=== PATIENT | female | born 1995 | race Caucasian/White ===

== ENCOUNTER 2019-01-31 01:59 | Emergency (ER) | payer SELFPAY ==
[~2019-01-31] VITALS: Ht 162.6 cm; Wt 86.2 kg
[2019-01-31 02:00] VITALS: BP 140/80
--- NOTE | 2019-01-31 02:00 | NUR ---
TO BED # 03 AMBULATORY
--- NOTE | 2019-01-31 02:15 | NUR ---
23 YO F BIB SELF AND FAMILY PRESENTS TO ED C/O FEVER SINCE YESTERDAY ACCOMPANIED BY PINEDA, BODY ACHES X 1 DAY. PT IS FEBRILE AT THIS TIME: 100.8 PMH-- DENIES
[2019-01-31] MEDS ORDERED: KETOROLAC 60 MG/2 ML VIAL IM ONE (02:25)
[2019-01-31 03:20] VITALS: BP 140/80
--- NOTE | 2019-01-31 03:20 | NUR ---
Patient discharged with v/s stable. Written and verbal after care instructions given and explained. Patient alert, oriented and verbalized understanding of instructions. Ambulatory with steady gait. All questions addressed prior to discharge. ID band removed. Patient advised to follow up with PMD. Rx of Promethazine and Motrin given. Patient educated on indication of medication including possible reaction and side effects. Opportunity to ask questions provided and answered.
== END 2019-01-31 03:20 | disposition home or self-care (01) ==
LOC: MED 01:59
DX: J06.9 Acute upper respiratory infection, unspecified (principal); M25.50 Pain in unspecified joint
CPT/HCPCS: 71045; 96372; 99283; J1885

== ENCOUNTER 2020-01-06 19:32 | Emergency (ER) | payer SELFPAY ==
[~2020-01-06] VITALS: Ht 162.6 cm; Wt 90.3 kg
[2020-01-06 19:42] VITALS: BP 130/86
[2020-01-06] MEDS ORDERED: traMADol 50 MG TAB PO ONE (20:00)
[2020-01-06] MEDS ORDERED: NACL 0.9% 1,000 ML IV ONE (20:00)
[2020-01-06] MEDS ORDERED: ONDANSETRON 4 MG/2 ML VIAL IVP ONE (20:00)
[2020-01-06] MEDS ORDERED: ACETAMINOPHEN 650 MG/20.3 ML UDC PO ONE (20:00)
[2020-01-06] MEDS ORDERED: ACETAMINOPHEN 325 MG TAB PO ONE ×3 (20:00→20:10)
[2020-01-06] MEDS ORDERED: KETOROLAC 30 MG/ML VIAL IVP ONE (21:20)
[2020-01-06 21:42] VITALS: BP 125/81
== END 2020-01-06 21:35 | disposition home or self-care (01) ==
LOC: MED 19:32
DX: R51 Headache (principal)
CPT/HCPCS: 70450; 81025; 96374; 96375; 99284; J1885; J2405; J7030

== ENCOUNTER 2021-12-21 15:18 | Emergency (ER) | payer MEDICAID ==
[~2021-12-21] VITALS: Ht 162.6 cm; Wt 81.6 kg
[2021-12-21 15:38] VITALS: BP 155/80
--- NOTE | 2021-12-21 15:45 | NUR ---
PT W/C ASSISTED TO BED 5.
[2021-12-21] MEDS ORDERED: DICYCLOMINE HCL LIQUID 20 MG, ALUMINUM HYD/MAG/SIMETHICONE 30 ML, LIDOCAINE VISCOUS 2% ... PO ONE ×3 (16:00)
[2021-12-21] MEDS ORDERED: KETOROLAC 30 MG/ML VIAL IM ONE (16:00)
--- NOTE | 2021-12-21 16:10 | NUR ---
26 Y/O FEMALE C/O ABD PAIN X 1 HOUR AGO. PATIENT STATES "SHE WAS HOLDING IN HER BOWEL MOVEMENT AND FELT LIKE SOMETHING WENT UP IN HER STOMACH AND THEN PAIN STARTED." PAIN IS 6/10 ONLY IN ABDOMEN. PATIENT GAVE LAST MONTH. MEDICAL HISTORY: DENIES NKDA
--- NOTE | 2021-12-21 16:11 | NUR ---
LABS DRAWN HANDED TO CPT. JEAN-CLAUDE
[2021-12-21 16:12] LABS: BASOPHILS % (AUTO) 0.5 % (0.0-2.0); EOSINOPHILS # (AUTO) 0.1 K/uL (0-0.4); EOSINOPHILS % (AUTO) 1.2 % (0.0-4.0); HEMATOCRIT 34.4 % (36-48); HEMOGLOBIN 11.4 g/dL (12.0-16.0); LYMPHOCYTES # (AUTO) 2.8 K/uL (2.5-16.5); LYMPHOCYTES % (AUTO) 31.3 % (20.5-51.1); MEAN CORPUSCULAR HEMOGLOBIN 29 pg (27-31); MEAN CORPUSCULAR HGB CONC 33 g/dL (33-37); MEAN CORPUSCULAR VOLUME 86.1 fL (80-94); MONOCYTES # (AUTO) 0.5 K/uL (0.8-1.0); MONOCYTES % (AUTO) 5.5 % (1.7-9.3); NEUTROPHILS # (AUTO) 5.5 K/uL (1.8-7.7); NEUTROPHILS % (AUTO) 61.5 % (42.2-75.2); PLATELET COUNT (AUTO) 269 K/uL (140-450); RED BLOOD CELL COUNT(AUTO) 3.99 MIL/uL (4.20-5.40); RED CELL DISTRIBUTION WIDTH 13.3 % (11.6-13.7)
--- NOTE | 2021-12-21 16:12 | NUR ---
RADIOLOGY AT BEDSIDE
--- NOTE | 2021-12-21 16:21 | NUR ---
pt to brp w/o asst
[2021-12-21] MEDS ORDERED: ALUMINUM HYD/MAG/SIMETHICONE 30 ML UDC ONE (16:41)
[2021-12-21] MEDS ORDERED: DICYCLOMINE HCL LIQUID 10 MG/5 ML UDC ONE (16:41)
[2021-12-21 16:42] LABS: ALBUMIN 3.7 g/dL (3.4-5.0); ANION GAP 15.4 (8-16); CARBON DIOXIDE 26.1 mmol/L (21-32); CREATININE 0.9 mg/dL (0.6-1.3); POTASSIUM 3.5 mmol/L (3.5-5.1); TOTAL BILIRUBIN 0.3 mg/dL (0.0-1.0)
--- NOTE | 2021-12-21 17:41 | NUR ---
Patient discharged with v/s stable. Written and verbal after care instructions given. Patient alert, oriented and verbalized understanding of instructions. Ambulatory with steady gait. All questions addressed prior to discharge. ID band removed. Patient advised to follow up with PMD. Opportunity to ask questions provided and answered.
[2021-12-22] MEDS ORDERED: IBUP-2213 PO (19:26)
[2021-12-22] MEDS ORDERED: NITR100C7 PO (19:26)
[2021-12-22] MEDS ORDERED: OMEP20EC11 PO (19:26)
== END 2021-12-21 17:41 | disposition home or self-care (01) ==
LOC: MED 15:18
DX: R10.13 Epigastric pain (principal)
CPT/HCPCS: 36415; 74018; 80053; 81002; 81025; 83690; 85025; 96372; 99284; J1885; Q0092

== ENCOUNTER 2021-12-22 16:17 | Emergency (ER) | payer MEDICAID ==
[~2021-12-22] VITALS: Ht 162.6 cm; Wt 81.6 kg
[2021-12-22 17:05] VITALS: BP 134/79
[2021-12-22] MEDS ORDERED: ONDANSETRON 4 MG TAB PO ONE (17:30)
[2021-12-22] MEDS ORDERED: DICYCLOMINE HCL LIQUID 20 MG, ALUMINUM HYD/MAG/SIMETHICONE 30 ML, LIDOCAINE VISCOUS 2% ... PO ONE ×3 (17:30)
--- NOTE | 2021-12-22 18:08 | NUR ---
Patient ambulatd with steady gait to bed 2.
[2021-12-22] MEDS ORDERED: ALUMINUM HYD/MAG/SIMETHICONE 30 ML UDC ONE (18:10)
[2021-12-22] MEDS ORDERED: DICYCLOMINE HCL LIQUID 10 MG/5 ML UDC ONE (18:11)
--- NOTE | 2021-12-22 18:37 | NUR ---
PT TAKEN TO CT VIA WC
--- NOTE | 2021-12-22 18:48 | NUR ---
PT RETURN FROM CT VIA WHEELCHAIR
--- NOTE | 2021-12-22 19:01 | NUR ---
DR SANDERS AT BEDSIDE
[2021-12-22] MEDS ORDERED: IBUP-2213 PO (19:26)
[2021-12-22] MEDS ORDERED: OMEP20EC11 PO (19:26)
[2021-12-22] MEDS ORDERED: NITR100C7 PO (19:26)
[2021-12-22 19:28] VITALS: BP 128/77
--- NOTE | 2021-12-22 19:33 | NUR ---
Patient discharged with v/s stable. Written and verbal after care instructions ABOUT KIDNEY STONES, GASTRITIS, UTI given and explained. Patient alert, oriented and verbalized understanding of instructions. Ambulatory with steady gait. All questions addressed prior to discharge. ID band removed. Patient advised to follow up with PMD. Rx of IBUPORFEN, MACROBID, PRILOSEC given. Patient educated on indication of medication including possible reaction and side effects. Opportunity to ask questions provided and answered.
== END 2021-12-22 19:33 | disposition home or self-care (01) ==
LOC: MED 16:17
DX: K29.70 Gastritis, unspecified, without bleeding (principal); N20.0 Calculus of kidney; N39.0 Urinary tract infection, site not specified
CPT/HCPCS: 74176; 81002; 81025; 99284; Q0162

== ENCOUNTER 2022-02-22 23:12 | Emergency (ER) | payer MEDICAID, OTHER ==
[~2022-02-22] VITALS: Ht 162.6 cm; Wt 84.4 kg
[~2022-02-22 23:12] MED LIST: IBUP-2213 PO; NITR100C7 PO; OMEP20EC11 PO
[2022-02-22 23:15] VITALS: BP 140/90
--- NOTE | 2022-02-22 23:18 | NUR ---
to lobby a/w bed ambulatory
[2022-02-23] MEDS ORDERED: ONDA-188 SL (00:08)
[2022-02-23] MEDS: ONDANSETRON 4 MG ODT PO ONE (00:52)
[2022-02-23] MEDS: ACETAMINOPHEN EXTRA STRENGTH 500 MG TAB PO ONE (00:53)
== END 2022-02-23 00:58 | disposition home or self-care (01) ==
LOC: MED 23:12
DX: R11.2 Nausea with vomiting, unspecified (principal); R19.7 Diarrhea, unspecified
CPT/HCPCS: 99283; Q0162

== ENCOUNTER 2022-02-25 13:07 | Inpatient (IN) | payer OTHER ==
[~2022-02-25] VITALS: Ht 162.6 cm; Wt 81.2 kg
--- NOTE | 2022-02-25 10:56 | NUR ---
DC PLANNIN YRS OLD FEMALE PATIENT WAS ADMITTED FROM HOME WITH A DX OF CHOLEDOCHOLITHIASIS. PATIENT HAS A HX OF GASTRITIS. ERCP DONE BY DR MARRUFO AND RECOMMENDED LAP JASMIN TO BE DONE. ADMINISTERED ROCEPHIN IV ABX AND IVF. CONSULTED WITH DR KRISHNAMURTHY SURGEON DC PLAN TO GO HOME WHEN STABLE CM TO FOLLOW Addendum: 02/28/22 at 1108 by Kathi Fermin RN DC PLANNING: DR KRISHNAMURTHY PERFORMED LAP JASMIN LYSIS OF ADHESIONS . PT TOLERATED WELL ADVANCED DIET, CONTINUED IV ABX ROCEPHIN . STABLE FO DC . AWAITING FOR ATTENDING TO SEE PATIENT. CM TO FOLLOW
[~2022-02-25 13:07] MED LIST changes: +ONDA-188 SL
[2022-02-25 13:16] VITALS: BP 138/72
[2022-02-25] MEDS ORDERED: KETOROLAC 15 MG/ML VIAL IVP ONE (13:30)
[2022-02-25] MEDS ORDERED: ALUMINUM HYD/MAG/SIMETHICONE 30 ML, DICYCLOMINE HCL LIQUID 20 MG, LIDOCAINE VISCOUS 2% ... PO ONE ×3 (13:30)
[2022-02-25] MEDS ORDERED: ONDANSETRON 4 MG/2 ML VIAL IVP ONE (13:30)
[2022-02-25] MEDS ORDERED: FAMOTIDINE 20 MG/2 ML VIAL IVP ONE (13:30)
[2022-02-25] MEDS ORDERED: NACL 0.9% 1,000 ML IV SCH (13:40)
[2022-02-25 14:04] LABS: BASOPHILS % (AUTO) 0.5 % (0.0-2.0); EOSINOPHILS # (AUTO) 0.1 K/uL (0-0.4); HEMATOCRIT 39.3 % (36-48); HEMOGLOBIN 12.8 g/dL (12.0-16.0); LYMPHOCYTES # (AUTO) 1.8 K/uL (2.5-16.5); MEAN CORPUSCULAR HEMOGLOBIN 27 pg (27-31); MEAN CORPUSCULAR HGB CONC 33 g/dL (33-37); MEAN CORPUSCULAR VOLUME 83.1 fL (80-94); MONOCYTES # (AUTO) 0.5 K/uL (0.8-1.0); MONOCYTES % (AUTO) 7.4 % (1.7-9.3); NEUTROPHILS # (AUTO) 4.9 K/uL (1.8-7.7); NEUTROPHILS % (AUTO) 67.1 % (42.2-75.2); PLATELET COUNT (AUTO) 221 K/uL (140-450); RED BLOOD CELL COUNT(AUTO) 4.74 MIL/uL (4.20-5.40); RED CELL DISTRIBUTION WIDTH 15.6 % (11.6-13.7); WHITE BLOOD COUNT (AUTO) 7.3 K/uL (4.8-10.8)
[2022-02-25 14:25] LABS: ALBUMIN 3.9 g/dL (3.4-5.0); CARBON DIOXIDE 29.9 mmol/L (21-32); CREATININE 0.8 mg/dL (0.6-1.3); POTASSIUM 3.9 mmol/L (3.5-5.1); TOTAL BILIRUBIN 1.2 mg/dL (0.0-1.0)
--- NOTE | 2022-02-25 14:39 | NUR ---
ULTRASOUND AT BEDSIDE
[2022-02-25] MEDS ORDERED: KETOROLAC 15 MG/ML VIAL ONE (15:18)
[2022-02-25] MEDS ORDERED: DICYCLOMINE 20 MG/2 ML VIAL IM ONE (15:20)
--- NOTE | 2022-02-25 15:24 | NUR ---
URINE OBTAINED AND SENT TO LAB
--- NOTE | 2022-02-25 17:25 | NUR ---
PENDING ADMIT ORDERS
[2022-02-25] MEDS ORDERED: POTASSIUM CHLORIDE 10 MEQ TABER PO PRN (17:30)
[2022-02-25] MEDS ORDERED: KCL 20 MEQ/WATER INJ PREMIX 200 ML IV PRN (17:30)
[2022-02-25] MEDS ORDERED: HYDROcodone/APAP 5/325 MG 1 TAB TAB PO PRN (17:30)
[2022-02-25] MEDS ORDERED: MAGNESIUM OXIDE 400 MG TAB PO PRN (17:30)
[2022-02-25] MEDS ORDERED: MORPHINE SULFATE 4 MG/ML SYR IVP PRN (17:30)
[2022-02-25] MEDS ORDERED: ACETAMINOPHEN 325 MG TAB PO PRN (17:30)
[2022-02-25] MEDS ORDERED: MAG SULF 2000 MG/WATER PREMIX 50 ML IV PRN (17:30)
[2022-02-25] MEDS ORDERED: ONDANSETRON 4 MG/2 ML VIAL IVP PRN (17:30)
[2022-02-25] MEDS: NACL 0.9% 1,000 ML IV SCH (18:04)
--- NOTE | 2022-02-25 18:06 | NUR ---
PT IN GOWN . PT IS NPO EXCEPT PO MEDS
--- NOTE | 2022-02-25 21:00 | NUR ---
PT RESTING IN BED. PROVIDED A BLANKET. ALL NEEDS MEET AT THIS TIME.
[2022-02-25 21:19] LABS: BILIRUBIN,URINE 2+ (NEGATIVE); BLOOD, URINE NEGATIVE (NEGATIVE); LEUKOCYTE ESTERASE ,URINE TRACE (NEGATIVE); NITRITE, URINE POSITIVE (NEGATIVE); UGLUCOSE NEGATIVE (NEGATIVE)
[2022-02-25 21:23] LABS: APPEARANCE,URINE HAZY (CLEAR); COLOR,URINE AMBER (YELLOW)
[2022-02-25 21:58] LABS: RBC,URINE 0-5 /HPF (0-5)
--- NOTE | 2022-02-26 01:00 | NUR ---
PT INFORMED THAT SHE DOES NOTHAVE A BED ON THE FLOOR AT THIS TIME . RESTING IN BED. ALL PTS NEEDS MEET AT THIS TIME.
--- NOTE | 2022-02-26 04:20 | NUR ---
PT RESTING BED. ALL PT NEEDS MET AT THIS TIME
[2022-02-26 06:14] LABS: BASOPHILS % (AUTO) 0.4 % (0.0-2.0); EOSINOPHILS # (AUTO) 0.1 K/uL (0-0.4); EOSINOPHILS % (AUTO) 1.8 % (0.0-4.0); HEMATOCRIT 33.5 % (36-48); HEMOGLOBIN 11.1 g/dL (12.0-16.0); LYMPHOCYTES # (AUTO) 2.4 K/uL (2.5-16.5); LYMPHOCYTES % (AUTO) 34.4 % (20.5-51.1); MEAN CORPUSCULAR HEMOGLOBIN 28 pg (27-31); MEAN CORPUSCULAR HGB CONC 33 g/dL (33-37); MEAN CORPUSCULAR VOLUME 83.1 fL (80-94); MONOCYTES # (AUTO) 0.6 K/uL (0.8-1.0); MONOCYTES % (AUTO) 8.1 % (1.7-9.3); NEUTROPHILS # (AUTO) 3.8 K/uL (1.8-7.7); NEUTROPHILS % (AUTO) 55.3 % (42.2-75.2); PLATELET COUNT (AUTO) 180 K/uL (140-450); RED BLOOD CELL COUNT(AUTO) 4.03 MIL/uL (4.20-5.40); RED CELL DISTRIBUTION WIDTH 15.7 % (11.6-13.7); WHITE BLOOD COUNT (AUTO) 6.9 K/uL (4.8-10.8)
[2022-02-26 06:42] LABS: ALBUMIN 3.2 g/dL (3.4-5.0); ANION GAP 8.7 (8-16); CARBON DIOXIDE 29.2 mmol/L (21-32); CREATININE 0.9 mg/dL (0.6-1.3); MAGNESIUM 2.2 mg/dL (1.8-2.4); POTASSIUM 3.9 mmol/L (3.5-5.1); TOTAL BILIRUBIN 0.8 mg/dL (0.0-1.0)
--- NOTE | 2022-02-26 07:10 | NUR ---
PT RESTING IN BED. ALL PTS NEEDS ARE MEET.
--- NOTE | 2022-02-26 07:16 | NUR ---
Pt report given to YAN. Transfer of care at this time.
[2022-02-26 07:35] VITALS: BP 135/85
--- NOTE | 2022-02-26 07:35 | NUR ---
PATIENT WHEELED BY 2 RN FROM ER ON A GURNEY. RN GAVE BEDSIDE REPORT FOR CONTINUITY OF CARE. PATIENT AWAKE , ALERT VERBALLY RESPONSIVE ALERT ORIENTED X4 . RESPIRATION EVEN AND NOT LABORED NO SHORTNESS OF BREATH. IV SITE ON HER RIGHT AC EPIFANIO 20 IV RUNNING AT 80 CC/HOUR OF NS. PATIENT DENIES PAIN OR NAUSEA OR VOMITING. ORIENTED PATIENT TO ROOM, TOILET, CALL LIGHT TV. PATIENT ON NPO.
--- NOTE | 2022-02-26 07:41 | NUR ---
Patient will be admitted to care of Lois REED. Admited to Med/Surg. Will go to room 126. Belongings list completed. Report to Lois REED.
--- NOTE | 2022-02-26 08:00 | NUR ---
RECEIVED REPORT FROM TAR ROOFER FOR CONTINUITY OF CARE. PT IS STABLE. PLAN OF CARE DISCUSSED.
[2022-02-26] MEDS: DOCUSATE SODIUM 100 MG GELCAP PO SCH (08:32)
--- NOTE | 2022-02-26 08:32 | NUR ---
GIVEN MEDICATION ORDER.
[2022-02-26] MEDS: NACL 0.9% 1,000 ML IV SCH ×2 (10:00→16:47)
--- NOTE | 2022-02-26 11:55 | NUR ---
PATIENT ALERT ORIENTED ON STABLE CONDITION. ECONOMIC DEVELOPER BY VICE PRESIDENT COMPLIANCE TO GO TO OR FOR PROCEDURE.
[2022-02-26] MEDS ORDERED: MIDAZOLAM 2 MG/2 ML VIAL ONE (12:06)
[2022-02-26] MEDS ORDERED: KETAMINE 500 MG/5 ML VIAL ONE (12:09)
--- NOTE | 2022-02-26 13:37 | NUR ---
PATIENT BACK FROM ERCP PROCEDURE ALERT ORIENTED ABLE TO RESPONDS. PATIENT REMAIN IN NPO. BRIANNA PRUITT GAVE REPORT FOR PATIENT CONTINUITY OF CARE.
--- NOTE | 2022-02-26 13:40 | NUR ---
DR. AYERS SEEN PATIENT ON HER ROOM.
--- NOTE | 2022-02-26 15:30 | NUR ---
PATIENT ON BED ASLEEP ON STABLE CONDITION.
[2022-02-26 16:00] VITALS: BP 119/55
--- NOTE | 2022-02-26 18:00 | NUR ---
PATIENT ASKING IF SHE CAN EAT I TOLD HER THAT SHE IS STILL NPO PATIENT UNDERSTAND. IV HYDRATION STILL RUNNINGAT 80CC/HOUR.
--- NOTE | 2022-02-26 19:41 | NUR ---
GAVE REPORT TO AIRPLANE CAPTAIN NURSE FOR CONTINUITY OF CARE.
--- NOTE | 2022-02-26 19:42 | NUR ---
RECEIVED REPORT FROM AM NURSE FOR CONTINUITY OF CARE. PT IS STABLEIN BED. A&OX4. ON RM AIR. NAD.RR EVEN AND UNLABORED.ERCP DONE 02/24/22. GALLSTONE THAT WAS FOUND TOO BIG TO CRUSH. PT WILL BE NPO AFTER MN 02/26/22 FOR LAPROSCOPIC CHOLECYSTECTOMY POSSIBLE OPEN PER DR. MATTHEW KRISHNAMURTHY. CONSENT ON CHART SIGNED BY PATIENT.PT IS AMBULATORY AND CONTINENT. CALL LIGHT WITHIN REACH .WILL CONTINUE TO MONITOR.
[2022-02-27] VITALS: BP 120/61
[2022-02-27] MEDS: NACL 0.9% 1,000 ML IV SCH ×4 (00:48→19:30)
[2022-02-27 07:07] LABS: BASOPHILS % (AUTO) 0.3 % (0.0-2.0); EOSINOPHILS % (AUTO) 0.1 % (0.0-4.0); HEMATOCRIT 35.7 % (36-48); HEMOGLOBIN 11.7 g/dL (12.0-16.0); LYMPHOCYTES # (AUTO) 2.7 K/uL (2.5-16.5); LYMPHOCYTES % (AUTO) 30.4 % (20.5-51.1); MEAN CORPUSCULAR HEMOGLOBIN 27 pg (27-31); MEAN CORPUSCULAR HGB CONC 33 g/dL (33-37); MEAN CORPUSCULAR VOLUME 82.8 fL (80-94); MONOCYTES # (AUTO) 0.5 K/uL (0.8-1.0); MONOCYTES % (AUTO) 5.4 % (1.7-9.3); NEUTROPHILS # (AUTO) 5.5 K/uL (1.8-7.7); NEUTROPHILS % (AUTO) 63.8 % (42.2-75.2); PLATELET COUNT (AUTO) 203 K/uL (140-450); RED BLOOD CELL COUNT(AUTO) 4.31 MIL/uL (4.20-5.40); RED CELL DISTRIBUTION WIDTH 15.4 % (11.6-13.7); WHITE BLOOD COUNT (AUTO) 8.7 K/uL (4.8-10.8)
[2022-02-27 07:44] LABS: ALBUMIN 3.3 g/dL (3.4-5.0); ANION GAP 14.3 (8-16); CARBON DIOXIDE 22.9 mmol/L (21-32); CREATININE 0.7 mg/dL (0.6-1.3); MAGNESIUM 1.8 mg/dL (1.8-2.4); POTASSIUM 4.2 mmol/L (3.5-5.1); TOTAL BILIRUBIN 0.5 mg/dL (0.0-1.0)
--- NOTE | 2022-02-27 08:11 | NUR ---
PATIENT HAS BEEN SCREENED AND CATEGORIZED MODERATE NUTRITION RISK. PATIENT WILL BE SEEN WITHIN 3-5 DAYS OF ADMISSION. 02/26/22-03/02/[address]
[2022-02-27] MEDS ORDERED: ONDANSETRON 4 MG/2 ML VIAL IVP PRN ×2 (08:45→11:55)
[2022-02-27] MEDS ORDERED: MEPERIDINE 25 MG/ML SYR IVP PRN ×2 (08:45→11:55)
[2022-02-27] MEDS ORDERED: NACL 0.9% 1,000 ML IV SCH (08:45)
[2022-02-27] MEDS ORDERED: PROPOFOL 200 MG/20 ML VIAL IV ONE (08:54)
[2022-02-27] MEDS ORDERED: SUGAMMADEX SODIUM 200 MG/2 ML VIAL IV ONE (08:54)
[2022-02-27] MEDS ORDERED: fentaNYL citrate 0.05 MG/ML VIAL ONE ×2 (08:55→11:52)
[2022-02-27] MEDS ORDERED: BUPIVACAINE-MPF 0.25% 30 ML VIAL INJ ONE (09:36)
[2022-02-27] MEDS ORDERED: LIDOCAINE/EPI MPF 1%1:200000 30 ML VIAL INJ ONE (09:36)
[2022-02-27] MEDS ORDERED: ceFAZolin 2,000 MG VIAL ONE (09:48)
[2022-02-27] MEDS ORDERED: SEVOFLURANE 250 ML BTL INH ONE ×2 (09:50→12:03)
[2022-02-27] MEDS: DOCUSATE SODIUM 100 MG GELCAP PO SCH (10:00)
[2022-02-27 10:52] VITALS: BP 126/74
[2022-02-27] MEDS: HYDROmorphone 1 MG/ML AMP IVP PRN ×6 (11:10→22:22)
[2022-02-27] MEDS ORDERED: HYDROmorphone PFS 2 MG/ML SYR ONE (11:11)
[2022-02-27] MEDS ORDERED: fentaNYL citrate 0.05 MG/ML VIAL IVP ONE (11:55)
[2022-02-27] MEDS ORDERED: HYDROmorphone 1 MG/ML AMP IVP PRN (11:55)
[2022-02-27] MEDS: HYDROcodone/APAP 5/325 MG 1 TAB TAB PO PRN (14:03)
[2022-02-27 16:06] VITALS: BP 126/74
--- NOTE | 2022-02-27 18:02 | NUR ---
Patient came back from procedure at around noon. Patient states she has 9/10 pain. [place] and Dilaudid given with moderate pain relief. Patient's mother was at bedside throughout the day. Patient ambulated to the restroom to void.
[2022-02-28] VITALS: BP 146/89
[2022-02-28] MEDS: HYDROmorphone 1 MG/ML AMP IVP PRN (04:37)
[2022-02-28 05:35] LABS: BASOPHILS % (AUTO) 0.3 % (0.0-2.0); EOSINOPHILS % (AUTO) 0.2 % (0.0-4.0); HEMATOCRIT 32.5 % (36-48); HEMOGLOBIN 10.6 g/dL (12.0-16.0); LYMPHOCYTES # (AUTO) 3.2 K/uL (2.5-16.5); LYMPHOCYTES % (AUTO) 35.9 % (20.5-51.1); MEAN CORPUSCULAR HEMOGLOBIN 27 pg (27-31); MEAN CORPUSCULAR HGB CONC 33 g/dL (33-37); MEAN CORPUSCULAR VOLUME 83.1 fL (80-94); MONOCYTES # (AUTO) 0.6 K/uL (0.8-1.0); NEUTROPHILS # (AUTO) 5.1 K/uL (1.8-7.7); NEUTROPHILS % (AUTO) 56.6 % (42.2-75.2); PLATELET COUNT (AUTO) 184 K/uL (140-450); RED BLOOD CELL COUNT(AUTO) 3.91 MIL/uL (4.20-5.40); RED CELL DISTRIBUTION WIDTH 15.2 % (11.6-13.7)
[2022-02-28 05:49] LABS: ANION GAP 10.4 (8-16); CARBON DIOXIDE 26.5 mmol/L (21-32); CREATININE 0.7 mg/dL (0.6-1.3); MAGNESIUM 1.8 mg/dL (1.8-2.4); POTASSIUM 3.9 mmol/L (3.5-5.1); TOTAL BILIRUBIN 0.4 mg/dL (0.0-1.0)
--- NOTE | 2022-02-28 07:35 | NUR ---
RECEIVED REPORT FROM MACHINE HAND NURSE FOR CONTINUITY OF CARE. PATIENT AWAKE NO DISTRESS NOTED. RESPIRATION EVEN AND NOT LABORED ON ROOM AIR. IV SITE ON RIGHT AC EPIFANIO 20 RUNNING AT 120 CC/HOUR. PATIENT DENIES PAIN OR NAUSEA OR VOMITING. ALL SAFETY MEASURE IN PLACE
[2022-02-28 08:00] VITALS: BP 144/86
--- NOTE | 2022-02-28 09:30 | NUR ---
PATIENT ON BED RESTING WITH IV INFUSING AT 120 CC/HOUR TOLERATED WELL NO OVER LOAD NOTED. CALL LIGHT WITH IN EASY REACH.
[2022-02-28] MEDS: DOCUSATE SODIUM 100 MG GELCAP PO SCH (09:36)
[2022-02-28] MEDS: NACL 0.9% 1,000 ML IV SCH (11:45)
[2022-02-28] MEDS ORDERED: ACET-9525 PO (12:22)
[2022-02-28 12:37] VITALS: BP 144/86
[2022-02-28] MEDS: HYDROcodone/APAP 5/325 MG 1 TAB TAB PO PRN (13:26)
--- NOTE | 2022-02-28 13:27 | NUR ---
PATIENT COMPLAIN OF ABDOMINAL PAIN MEDICATED ORDER.
--- NOTE | 2022-02-28 16:55 | NUR ---
PATIENT ALERT ORIENTED ABLE TO MAKE NEEDS KNOWN. RESPIRATION EVEN AND NOT LABORED NO SHORTNESS OF BREATH. DISCHARGE PACKET GIVEN WITH INSTRUCTION AND WRITTEN PRESCRIPTION GIVEN ALL PERSONAL BELONGING TAKEN. NAME BAND REMOVED AND IV SITE REMOVED WITH CATHETER INTACT. PATIENT AMBULATE REFUSED TO BE WHEELED OUTSIDE.
== END 2022-02-28 16:55 | disposition home or self-care (01) | DRG 263 ==
LOC: MED 13:07 → MMU 17:27
PROVIDERS: ADMIT Hospitalist; ATTEND Hospitalist
PROC: 0F798DZ Dilation of Common Bile Duct with Intraluminal Device, Via Natural or Artificial Opening Endoscopic (ICD-10-PCS; 2022-02-26)
PROC: BF101ZZ Fluoroscopy of Bile Ducts using Low Osmolar Contrast (ICD-10-PCS; 2022-02-26)
PROC: 0FT44ZZ Resection of Gallbladder, Percutaneous Endoscopic Approach (ICD-10-PCS; principal; 2022-02-27 09:45)
DX: K80.20 Calculus of gallbladder without cholecystitis without obstruction (principal); K80.30 Calculus of bile duct with cholangitis, unspecified, without obstruction; E80.6 Other disorders of bilirubin metabolism; K29.70 Gastritis, unspecified, without bleeding; I10 Essential (primary) hypertension; Z20.822 Contact with and (suspected) exposure to COVID-19
CPT/HCPCS: 36415; 76705; 80053; 81001; 83690; 83735; 85025; 87081; 87086; 96361; 96374; 96375; 99285; C1769; C1773; J0500; J0696; J1170; J1885; J2001; J2250; J2405; J2704; J3010; J3490; J7030; J7060; J7120; Q0092; Q9967

== ENCOUNTER 2022-04-27 08:56 | Emergency (ER) | payer OTHER ==
[~2022-04-27] VITALS: Ht 162.6 cm; Wt 83.9 kg
--- NOTE | 2022-04-27 09:40 | NUR ---
Boris kaiser in ED - 04/27/22 at 1108 by PAULINE Patient states LMP 04/22/2022; finished menstrual cycle yesterday; still spotting.
[2022-04-27 09:45] VITALS: BP 177/118
--- NOTE | 2022-04-27 09:48 | NUR ---
Boris kaiser in [facility] - 04/27/22 at 0950 by MED1 PT W/C TO BED 2
--- NOTE | 2022-04-27 09:50 | NUR ---
PT AMB TO [facility]
--- NOTE | 2022-04-27 10:15 | NUR ---
PT AMBULATED WITH ASSISTANCE TO ER BED 11
--- NOTE | 2022-04-27 10:18 | NUR ---
26 y/o F BIB self from home c/o generalized abdominal pain since this morning. Patient A&Ox4, ambulatory, reports generalized abd pain 10/10, cramping/constant, radiating across abdomen. Pt states nausea and vomiting 2-3 episodes this morning prior to arrival.Mid and left abdomen tender to palpation. Alleviates with guarding; worsens with urination. Denies fever, chills, dysuria, urinary symptoms, chest pain. Pepto Bismol. Gown in place. Bed locked in lowest position, side rails x 1. LMP: 04/22/22. PMH/Meds/Allergies: Denies Sx: cholecystectomy 02/2022
[2022-04-27] MEDS ORDERED: KETOROLAC 60 MG/2 ML VIAL IM ONE (10:20)
[2022-04-27] MEDS ORDERED: ONDANSETRON 4 MG ODT PO ONE (10:20)
--- NOTE | 2022-04-27 10:35 | NUR ---
Patient states LMP 04/22/2022; finished menstrual cycle yesterday; still spotting.
[2022-04-27] MEDS ORDERED: NACL 0.9% 1,000 ML IV SCH (10:40)
[2022-04-27] MEDS ORDERED: ONDANSETRON 4 MG/2 ML VIAL IVP ONE (10:55)
[2022-04-27] MEDS ORDERED: MORPHINE SULFATE 4 MG/ML SYR IVP ONE (11:00)
[2022-04-27 11:20] LABS: BASOPHILS # (AUTO) 0.1 K/uL (0.00-0.22); BASOPHILS % (AUTO) 0.6 % (0.0-2.0); EOSINOPHILS # (AUTO) 0.1 K/uL (0-0.4); EOSINOPHILS % (AUTO) 0.6 % (0.0-4.0); HEMATOCRIT 37.8 % (36-48); HEMOGLOBIN 12.6 g/dL (12.0-16.0); LYMPHOCYTES # (AUTO) 2.9 K/uL (2.5-16.5); LYMPHOCYTES % (AUTO) 25.8 % (20.5-51.1); MEAN CORPUSCULAR HEMOGLOBIN 28 pg (27-31); MEAN CORPUSCULAR HGB CONC 33 g/dL (33-37); MEAN CORPUSCULAR VOLUME 83.2 fL (80-94); MONOCYTES # (AUTO) 0.6 K/uL (0.8-1.0); MONOCYTES % (AUTO) 4.9 % (1.7-9.3); NEUTROPHILS # (AUTO) 7.7 K/uL (1.8-7.7); NEUTROPHILS % (AUTO) 68.1 % (42.2-75.2); PLATELET COUNT (AUTO) 237 K/uL (140-450); RED BLOOD CELL COUNT(AUTO) 4.54 MIL/uL (4.20-5.40); RED CELL DISTRIBUTION WIDTH 16.1 % (11.6-13.7); WHITE BLOOD COUNT (AUTO) 11.3 K/uL (4.8-10.8)
[2022-04-27 11:25] LABS: ALBUMIN 3.6 g/dL (3.4-5.0); ANION GAP 15.2 (8-16); CARBON DIOXIDE 24.3 mmol/L (21-32); CREATININE 0.9 mg/dL (0.6-1.3); POTASSIUM 3.5 mmol/L (3.5-5.1); TOTAL BILIRUBIN 0.4 mg/dL (0.0-1.0)
--- NOTE | 2022-04-27 12:04 | NUR ---
Patient to CT via gurney.
--- NOTE | 2022-04-27 12:22 | NUR ---
Patient returned from CT and placed back onto hospital monitor.
--- NOTE | 2022-04-27 12:55 | NUR ---
Pt states + relief to symptoms; 3/10 pain at this time. Denies nausea. monitor worker in place.
[2022-04-27] MEDS ORDERED: IBUP-2213 PO (13:02)
[2022-04-27] MEDS ORDERED: ACET-8386 PO (13:02)
[2022-04-27] MEDS ORDERED: ONDA8TAB87 PO (13:02)
[2022-04-27 13:28] VITALS: BP 112/71
--- NOTE | 2022-04-27 13:28 | NUR ---
Patient discharged with v/s stable. Written and verbal after care instructions given and explained. Patient alert, oriented and verbalized understanding of instructions. Ambulatory with steady gait. All questions addressed prior to discharge. ID band removed. Patient advised to follow up with PMD. Rx of Zofran, [place], Ibuprofen given. Patient educated on indication of medication including possible reaction and side effects. Opportunity to ask questions provided and answered. Copies of CT, blood work given to patient.
== END 2022-04-27 13:28 | disposition home or self-care (01) ==
LOC: MED 08:56
DX: R10.84 Generalized abdominal pain (principal); R11.2 Nausea with vomiting, unspecified; Z90.49 Acquired absence of other specified parts of digestive tract
CPT/HCPCS: 36415; 74176; 80053; 83690; 84702; 85025; 96361; 96372; 96374; 96375; 99284; J1885; J2270; J2405; J7030; Q0162

== ENCOUNTER 2023-10-30 03:45 | Emergency (ER) | payer MEDICAID, OTHER ==
[~2023-10-30] VITALS: Ht 162.6 cm; Wt 95.0 kg
[~2023-10-30 03:45] MED LIST changes: +ACET-8905 PO; +CAPS1ADH5 TP; +CYCL-711 PO; +NAPR-1704 PO; -NITR100C7 PO; -OMEP20EC11 PO; -ONDA-188 SL; +ONDA8TAB87 PO
[2023-10-30 03:59] VITALS: BP 130/85; PULSE 96; RESP 19; TEMP 99; O2SAT 98
[2023-10-30] MEDS ORDERED: IBUP-1842 PO ×2 (04:45→09:45)
[2023-10-30] MEDS ORDERED: AMOX500C25 PO ×2 (04:45→09:45)
[2023-10-30] MEDS: IBUPROFEN 600 MG TAB PO ONE (04:58)
[2023-10-30 04:59] VITALS: BP 130/85; PULSE 96; RESP 19; TEMP 99; O2SAT 98
== END 2023-10-30 05:01 | disposition home or self-care (01) ==
LOC: MED 03:45
DX: H66.91 Otitis media, unspecified, right ear (principal); R05.9 Cough, unspecified; R09.81 Nasal congestion; Z79.899 Other long term (current) drug therapy
CPT/HCPCS: 99283